=== PATIENT | female | born 1985 | race American Indian/Alaskan Native ===

== ENCOUNTER 2017-06-03 14:14 | Emergency (ER) | payer OTHER ==
--- NOTE | 2017-06-03 17:08 | Emergency Department Report ---
ED Back Pain/Injury HPI - General Chief Complaint: Back Pain/Injury Stated Complaint: SEVERE BACK PAIN Time Seen by Provider: 06/03/17 16:38 Source: patient Limitations: No Limitations - History of Present Illness Initial Comments: Patient comes into the ER today with complaints of lower back pain for the past 2-3 days. Patient states that a couple days ago she was bent over trying to clean the bottom part of her refrigerator when she felt a sudden sharp pain in her lower back. Since that time, the pain has not let up. Patient denies any position of comfort. Patient states that the pain is all that time of the same matter if she is ambulating, sitting, walking, laying still. Patient denies any past history of back problems but does state that she does a lot of heavy lifting at work and occasionally has times when her back hurts. Patient denies any loss of bowel control, urinary control, radiation into lower extremities. MD Complaint: back pain - Related Data Previous Rx's Medication Instructions Recorded Last Taken Type Cefuroxime Axetil [Ceftin] 500 mg PO Q12H #6 tablet 01/12/14 Unknown Rx Ferrous Sulfate [Iron Supplement 325 mg PO BID #14 tablet 01/12/14 Unknown Rx 325 Mg tab] Cyclobenzaprine [Flexeril] 10 mg PO TID PRN #15 tablet 06/03/17 Unknown Rx predniSONE [Deltasone] 60 mg PO QDAY 5 Days 06/03/17 Unknown Rx traMADol [Ultram] 50 mg PO Q4HR PRN #20 tablet 06/03/17 Unknown Rx Allergies Allergy/AdvReac Type Severity Reaction Status Date / Time No Known Allergies Allergy Unverified 01/12/14 07:20 ED Review of Systems ROS: Stated complaint: SEVERE BACK PAIN Other details as noted in HPI Constitutional: denies: chills, fever Eyes: denies: eye pain, eye discharge, vision change ENT: denies: ear pain, throat pain Respiratory: denies: cough, shortness of breath, wheezing Cardiovascular: denies: chest pain, palpitations Endocrine: no symptoms reported Gastrointestinal: denies: abdominal pain, nausea, vomiting, diarrhea Genitourinary: denies: urgency, dysuria, discharge Musculoskeletal: back pain. denies: joint swelling, arthralgia Skin: denies: rash, lesions Neurological: denies: headache, weakness, paresthesias Psychiatric: denies: anxiety, depression Hematological/Lymphatic: denies: easy bleeding, easy bruising ED Past Medical Hx - Past Medical History Previous Medical History?: Yes Additional medical history: back pain - Surgical History Past Surgical History?: No - Social History Smoking Status: Current Every Day Smoker Substance Use Type: Alcohol, Non Opiate Pain - Medications Home Medications: Home Medications Medication Instructions Recorded Confirmed Last Taken Type Cefuroxime Axetil [Ceftin] 500 mg PO Q12H #6 tablet 01/12/14 Unknown Rx Ferrous Sulfate [Iron Supplement 325 mg PO BID #14 tablet 01/12/14 Unknown Rx 325 Mg tab] Cyclobenzaprine [Flexeril] 10 mg PO TID PRN #15 tablet 06/03/17 Unknown Rx predniSONE [Deltasone] 60 mg PO QDAY 5 Days 06/03/17 Unknown Rx traMADol [Ultram] 50 mg PO Q4HR PRN #20 tablet 06/03/17 Unknown Rx ED Physical Exam - General Limitations: No Limitations General appearance: alert, in no apparent distress, obese - Head Head exam: Present: atraumatic, normocephalic - Eye Eye exam: Present: normal appearance - ENT ENT exam: Present: mucous membranes moist - Neck Neck exam: Present: normal inspection - Respiratory Respiratory exam: Present: normal lung sounds bilaterally. Absent: respiratory distress - Cardiovascular Cardiovascular Exam: Present: regular rate, normal rhythm. Absent: systolic murmur, diastolic murmur, rubs, gallop - GI/Abdominal GI/Abdominal exam: Present: soft, normal bowel sounds. Absent: tenderness - Extremities Exam Extremities exam: Present: normal inspection - Back Exam Back exam: Present: normal inspection, tenderness (left lateral lumbar tenderness), paraspinal tenderness (left lumbar). Absent: full ROM (Limited range of motion secondary to low back pain), CVA tenderness (R), CVA tenderness (L), vertebral tenderness - Neurological Exam Neurological exam: Present: alert, oriented X3, CN II-XII intact, reflexes normal. Absent: motor sensory deficit - Psychiatric Psychiatric exam: Present: normal affect, normal mood - Skin Skin exam: Present: warm, dry, intact, normal color. Absent: rash ED Course Vital Signs 06/03/17 14:33 Temperature 97.9 F Pulse Rate 78 Respiratory 20 Rate Blood Pressure 150/100 O2 Sat by Pulse 100 Oximetry ED Medical Decision Making - Lab Data Lab Results 06/03/17 06/03/17 Range/Units 17:16 17:16 Urine Color Yellow (Yellow) Urine Turbidity Clear (Clear) Urine pH 7.0 (5.0-7.0) Ur Specific [place] 1.018 (1.003-1.030) Urine Protein <15 mg/dl (Negative) mg/dL Urine Glucose (UA) Neg (Negative) mg/dL Urine Ketones Neg (Negative) mg/dL Urine Blood Sm (Negative) Urine Nitrite Neg (Negative) Urine Bilirubin Neg (Negative) Urine Urobilinogen 2.0 (<2.0) mg/dL Ur Leukocyte Esterase Mod (Negative) Urine WBC (Auto) 2.0 (0.0-6.0) /HPF Urine RBC (Auto) 7.0 (0.0-6.0) /HPF U Epithel Cells (Auto) 8.0 (0-13.0) /HPF Urine Mucus Few /HPF Urine HCG, Qual Negative (Negative) - Radiology Data Radiology results: report reviewed, image reviewed X-ray lumbar spine: Lordotic alignment is intact. Mild disc space narrowing at L5/S1. No fracture or subluxation. Posterior elements are intact. - Medical Decision Making Patient is nontoxic and hemodynamically stable. X-ray imaging obtained and reviewed with the patient in room. Based on history of injury, I suspect patient's symptoms to be more muscular in etiology. However due to patient having some disc space narrowing noted, I will refer patient to orthopedics for evaluation of possible discogenic etiology. In the meantime, I have encouraged patient to limit any strenuous activity. I will start patient on some medications appropriately to help relieve her symptoms. Patient is in agreement with treatment plan a patient stable for discharge. Critical care attestation.: If time is entered above; I have spent that time in minutes in the direct care of this critically ill patient, excluding procedure time. ED Disposition Clinical Impression: Low back pain, Lumbar spine strain Disposition: TO HOME OR SELFCARE Is pt being admited?: No Does the pt Need Aspirin: No Condition: Good Instructions: Low Back Strain (ED), Lumbar Disc Herniation (ED) Prescriptions: Cyclobenzaprine [Flexeril] 10 mg PO TID PRN #15 tablet PRN Reason: Muscle Spasm predniSONE [Deltasone] 60 mg PO QDAY 5 Days traMADol [Ultram] 50 mg PO Q4HR PRN #20 tablet PRN Reason: Pain Referrals: PRIMARY CAREMD [Primary Care Provider] - 3-5 Days RHEA WINSTON MD [Staff Physician] - 3-5 Days NELIA ROGEL MD [Staff Physician] - 3-5 Days Forms: Work/School Release Form(ED) Time of Disposition: 18:55
[2017-06-03 17:28] LABS: Bilirubin,Urine NEG (Negative); Blood,Urine SM (Negative); Ketones,Urine NEG (Negative); Leukocyte Esterase,Urine MOD (Negative); Mucus,Urine FEW /HPF; Nitrite,Urine NEG (Negative); Protein,Urine <15 mg/dL mg/dL (Negative)
--- NOTE | 2017-06-03 18:15 | XRay Report ---
FINAL REPORT EXAM: XR SPINE LUMBOSACRAL 2-3V HISTORY: Lumbar pain TECHNIQUE: Three views lumbar spine. PRIORS: None currently available. FINDINGS: Lordotic alignment is intact. Mild disc space narrowing at L5-S1. Otherwise disc spaces are uniform. No fracture or subluxation. Posterior elements are intact. Mild dextrocurvature of the thoracolumbar spine. No vertebral anomalies. No suspicious osseous lesions. SI joints are unremarkable. 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 Mild dextrocurvature of the thoracolumbar spine.
[2017-06-03 19:36] VITALS: BP 142/101
== END 2017-06-03 19:05 | disposition home or self-care (01) ==
LOC: ED 14:14
DX: S39.012A Strain of muscle, fascia and tendon of lower back, initial encounter (principal); F17.200 Nicotine dependence, unspecified, uncomplicated; X58.XXXA Exposure to other specified factors, initial encounter; Y93.9 Activity, unspecified; Y92.9 Unspecified place or not applicable; Y99.9 Unspecified external cause status
CPT/HCPCS: 72100; 81001; 81025; 99283